=== PATIENT | female | born 1960 | race Caucasian/White ===

== ENCOUNTER → 2024-08-03 | Outpatient (CLI) | payer OTHER, SELFPAY ==
[2024-08-03 08:37] LABS: Basophils % (Auto) 0 % (0-2.5); Eosinophils # (Auto) 0.2 Thou/mm3 (0.0-0.5); Eosinophils % (Auto) 4 % (0-10); Hemoglobin 12.5 g/dL (12.0-16.0); Immature Granulocytes % (Auto) 0 % (0-0); Lymphocytes # (Auto) 2.2 Thou/mm3 (1.0-4.8); Lymphocytes % (Auto) 46 % (10-50); Mean Corpuscular HGB Conc 32.1 g/dl (31.0-37.0); Mean Corpuscular Hemoglobin 26.3 pg (25.0-35.0); Mean Corpuscular Volume 82 fL (80-100); Monocytes # (Auto) 0.5 Thou/mm3 (0.0-0.8); Monocytes % (Auto) 11 % (0-12); Neutrophils # (Auto) 1.9 Thou/mm3 (1.8-7.7); Neutrophils % (Auto) 39 % (37-80); Nucleated Red Blood Cell % 0 /100 WBC (0); Platelet Count 221 Thou/mm3 (140-440); RDW Standard Deviation 40.6 fL (36.4-46.3); Red Blood Count 4.75 Miln/mm3 (4.00-5.20); White Blood Count 4.9 Thou/mm3 (3.6-11.0)
[2024-08-03 08:54] LABS: Alanine Aminotransferase 14 U/L (10-49); Albumin, Serum 4.6 gm/dL (3.4-4.8); Albumin/Globulin Ratio 1.7 (1.2-2.2); Alkaline Phosphatase 84 U/L (46-116); Anion Gap 7 (7-16); Aspartate Amino Transferase 23 U/L (0-34); BUN/Creatinine Ratio 19 Ratio (12-20); Bilirubin,Total 0.5 mg/dL (0.3-1.2); Blood Urea Nitrogen 15 mg/dL (9-23); Calcium 9.8 mg/dL (8.3-10.6); Calcium (Corrected) 9.8 mg/dL (8.5-10.1); Carbon Dioxide 26.7 mMol/L (20.0-31.0); Cardiac Risk Estimate 3.3 RATIO (3.7-5.6); Chloride 104 mMol/L (98-107); Cholesterol 154 mg/dL (132-200); Creatinine (Component) 0.8 mg/dL (0.6-1.3); Globulin 2.7 gm/dL (2.3-3.5); Glucose 100 mg/dL (74-106); HDL Cholesterol 46 mg/dL (40-60); LDL Cholesterol,Calculated 54 mg/dL (0-130); Osmolality,Calculated 276 (275-295); Potassium 4.3 mMol/L (3.4-5.1); Sodium 138 mMol/L (136-145); Total Protein 7.3 gm/dL (5.7-8.2); Triglycerides 271 mg/dL (30-150); eGFR > 60 See Note
[2024-08-03 08:55] LABS: Amphetamine/Methamp Scrn,U Negative (Negative); Barbiturate Screen,Urine Negative (Negative); Benzodiazepines Screen,Urine Negative (Negative); Benzoylecgonine Screen, Ur Negative (Negative); Fentanyl Screen,Urine Negative (Negative); Opiate Screen,Urine Negative (Negative); THC Screen,Urine Negative (Negative)
[2024-08-03 09:32] LABS: Glucose Estimated Average 100 mg/dL (80-131); Hemoglobin A1C 5.1 % Hgb (4.8-6.0)
== END | disposition home or self-care (01) ==
LOC: COPL 07:26
PROVIDERS: PCP Family Medicine; Referring Provider Internal Medicine; Visit Provider Internal Medicine
DX: I10 Essential (primary) hypertension (principal); E78.5 Hyperlipidemia, unspecified; F41.9 Anxiety disorder, unspecified
CPT/HCPCS: 36415; 80053; 80061; 80307; 83036; 85025

== ENCOUNTER → 2024-09-11 | Outpatient (CLI) | payer OTHER, SELFPAY ==
[2024-09-11 08:36] LABS: Basophils % (Auto) 1 % (0-2.5); Eosinophils # (Auto) 0.1 Thou/mm3 (0.0-0.5); Eosinophils % (Auto) 2 % (0-10); Hematocrit 36.3 % (36.0-46.0); Hemoglobin 11.7 g/dL (12.0-16.0); Immature Granulocytes % (Auto) 0 % (0-0); Immature Granulocytes Auto 0.02 Thou/mm3 (0.00-0.00); Lymphocytes # (Auto) 1.9 Thou/mm3 (1.0-4.8); Lymphocytes % (Auto) 33 % (10-50); Mean Corpuscular HGB Conc 32.2 g/dl (31.0-37.0); Mean Corpuscular Volume 81 fL (80-100); Monocytes # (Auto) 0.6 Thou/mm3 (0.0-0.8); Monocytes % (Auto) 10 % (0-12); Neutrophils # (Auto) 3.1 Thou/mm3 (1.8-7.7); Neutrophils % (Auto) 54 % (37-80); Nucleated Red Blood Cell % 0 /100 WBC (0); Platelet Count 240 Thou/mm3 (140-440); RDW Standard Deviation 39.6 fL (36.4-46.3); White Blood Count 5.9 Thou/mm3 (3.6-11.0)
[2024-09-11 09:02] LABS: Alanine Aminotransferase 11 U/L (10-49); Albumin, Serum 4.7 gm/dL (3.4-4.8); Albumin/Globulin Ratio 1.9 (1.2-2.2); Alkaline Phosphatase 76 U/L (46-116); Anion Gap 4 (7-16); Aspartate Amino Transferase 16 U/L (0-34); BUN/Creatinine Ratio 16 Ratio (12-20); Bilirubin,Total 0.5 mg/dL (0.3-1.2); Blood Urea Nitrogen 13 mg/dL (9-23); Calcium 9.7 mg/dL (8.3-10.6); Calcium (Corrected) 9.7 mg/dL (8.5-10.1); Carbon Dioxide 27.9 mMol/L (20.0-31.0); Chloride 103 mMol/L (98-107); Creatinine (Component) 0.8 mg/dL (0.6-1.3); Globulin 2.5 gm/dL (2.3-3.5); Glucose 104 mg/dL (74-106); Osmolality,Calculated 270 (275-295); Potassium 4.2 mMol/L (3.4-5.1); Sodium 135 mMol/L (136-145); Total Protein 7.2 gm/dL (5.7-8.2); eGFR > 60 See Note
[2024-09-11 09:14] LABS: Partial Thromboplastin Time 26.3 Seconds (22.0-36.0); Prothrombin Time 11.4 Seconds (9.0-12.2)
== END | disposition home or self-care (01) ==
PROVIDERS: PCP Family Medicine; Referring Provider Internal Medicine Gastroenterology; Visit Provider Internal Medicine Gastroenterology
DX: R10.9 Unspecified abdominal pain (principal)
CPT/HCPCS: 36415; 80053; 85025; 85610; 85730

== ENCOUNTER 2025-01-18 09:42 | Emergency (ER) | payer OTHER, SELFPAY ==
--- NOTE | 2025-01-18 09:45 | EKG_ITS ---
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
[2025-01-18 09:58] VITALS: BP 167/75; PULSE 65; RESP 16; TEMP 36.8; O2SAT 99; BMI 26.0
--- NOTE | 2025-01-18 10:00 | XR_ITS ---
Examination: PA lateral chest 2 views TECHNIQUE: Upright PA lateral chest 2 views Exam date and time: January 18, 2025 10:24 AM Comparison May 03, 2022 INDICATIONS: Chest pain shortness of breath beginning 3 days ago. FINDINGS: Stable pleural parenchymal scarring left base compared to the 2021 exam Heavy coronary artery calcification CABG Increased AP dimension chest No pneumonia or pulmonary edema Prominent osteopenia with mild kyphosis dorsal spine IMPRESSION: No pneumonia or pulmonary edema
--- NOTE | 2025-01-18 10:00 | EDRME_ITS ---
Rapid Medical Screening Exam [facility] Arrival date/time: 01/18/25 09:42 64-year-old female with history of open heart surgery and stent placement presents to the emergency department with complaints of elevated blood pressure and chest pressure Chief Complaint: Chest Pain Vital signs: Vital Signs Temperature 98.2 F 01/18/25 09:58 Pulse Rate 65 01/18/25 09:58 Respiratory Rate 16 01/18/25 09:58 Blood Pressure 167/75 H 01/18/25 09:58 Pulse Oximetry (%) 99 01/18/25 09:58 Oxygen Delivery Method Room Air 01/18/25 09:58
[2025-01-18 10:28] LABS: Basophils % (Auto) 0 % (0-2.5); Eosinophils # (Auto) 0.1 Thou/mm3 (0.0-0.5); Eosinophils % (Auto) 2 % (0-10); Immature Granulocytes % (Auto) 0 % (0-0); Immature Granulocytes Auto 0.01 Thou/mm3 (0.00-0.00); Lymphocytes # (Auto) 1.3 Thou/mm3 (1.0-4.8); Lymphocytes % (Auto) 24 % (10-50); Mean Corpuscular HGB Conc 32.5 g/dl (31.0-37.0); Mean Corpuscular Hemoglobin 25.6 pg (25.0-35.0); Mean Corpuscular Volume 79 fL (80-100); Monocytes # (Auto) 0.4 Thou/mm3 (0.0-0.8); Monocytes % (Auto) 6 % (0-12); Neutrophils # (Auto) 3.8 Thou/mm3 (1.8-7.7); Neutrophils % (Auto) 68 % (37-80); Nucleated Red Blood Cell % 0 /100 WBC (0); Platelet Count 202 Thou/mm3 (140-440); RDW Standard Deviation 39.4 fL (36.4-46.3); Red Blood Count 5.07 Miln/mm3 (4.00-5.20); White Blood Count 5.6 Thou/mm3 (3.6-11.0)
[2025-01-18 10:45] LABS: Partial Thromboplastin Time 26.8 Seconds (22.0-36.0); Prothrombin Time 11.4 Seconds (9.0-12.2)
[2025-01-18 10:54] LABS: Alanine Aminotransferase 14 U/L (10-49); Albumin, Serum 4.6 gm/dL (3.4-4.8); Albumin/Globulin Ratio 1.4 (1.2-2.2); Alkaline Phosphatase 78 U/L (46-116); Anion Gap 9 (7-16); Aspartate Amino Transferase 28 U/L (0-34); B-Type Natriuretic Peptide 150 pg/mL (0-100); BUN/Creatinine Ratio 14 Ratio (12-20); Bilirubin,Total 0.5 mg/dL (0.3-1.2); Blood Urea Nitrogen 13 mg/dL (9-23); Calcium 9.8 mg/dL (8.3-10.6); Calcium (Corrected) 9.8 mg/dL (8.5-10.1); Carbon Dioxide 26.4 mMol/L (20.0-31.0); Chloride 103 mMol/L (98-107); Creatinine (Component) 0.9 mg/dL (0.6-1.3); Estimated Creatinine Clearance 57.2 mL/min (>60); Globulin 3.3 gm/dL (2.3-3.5); Glucose 131 mg/dL (74-106); Magnesium 1.8 mg/dL (1.6-2.6); Osmolality,Calculated 277 (275-295); Potassium 3.5 mMol/L (3.4-5.1); Sodium 138 mMol/L (136-145); Total Protein 7.9 gm/dL (5.7-8.2); Troponin I < 0.020 ng/mL (0.0-0.045); eGFR > 60 See Note
--- NOTE | 2025-01-18 16:07 | PD.EDADULT ---
ED General RME/HPI General Chief complaint: Chest Pain Stated complaint: BP ELEVATED LAST 2 DAYS; CHEST PAIN THIS AM Time Seen by Provider: 01/18/25 15:29 Arrival date/time: 01/18/25 09:42 CC: Burning sensation in the epigastrium, and elevated blood pressure. The patient is labeling her epigastric pain as chest pain . Onset yesterday. Patient denies fever chills shortness of breath or difficulty breathing no other complaints at this time both the patient and the are frustrated for having waited such a long time in the emergency room waiting room. Currently the patient has no burning sensation is not short of breath but mild headache is beginning to return. RME / HPI RME / HPI narrative: 01/18/25 09:42 64-year-old female with history of open heart surgery and stent placement presents to the emergency department with complaints of elevated blood pressure and chest pressure Related Data Home Medications ?Medication ?Instructions ?Recorded ?Confirmed simvastatin 40 mg tablet (Zocor) 40 mg PO HS #0 tabs 04/27/17 11/13/19 omeprazole magnesium 20 mg 20 mg PO QDAY 05/24/18 11/13/19 tablet,delayed release (Prilosec OTC) nitroglycerin 0.4 mg sublingual 0.4 mg buccal [id number] PRN Chest 12/28/18 11/13/19 tablet Pain warfarin 4 mg tablet 4 mg PO QDAY 12/28/18 11/13/19 buspirone 5 mg tablet 5 mg PO TID 08/01/19 11/13/19 alprazolam 0.5 mg tablet (Xanax) 1 tab PO QDAY PRN Anxiety 11/11/19 11/13/19 aspirin 81 mg tablet,delayed 1 tab PO QDAY 11/11/19 11/13/19 release (Aspir-) losartan 100 mg tablet 100 mg PO QDAY 11/11/19 11/13/19 metoprolol succinate 50 mg capsule 1 tab PO QDAY 11/11/19 11/13/19 sprinkle, ext. release 24 hr cholecalciferol (vitamin D3) 50 2,000 unit PO QDAY 11/13/19 11/13/19 mcg (2,000 unit) tablet (Vitamin D3) ticagrelor 90 mg tablet (Brilinta) 90 mg PO BID 11/13/19 11/13/19 Previous Rx's ?Medication ?Instructions ?Recorded famotidine 20 mg tablet 20 mg PO QDAY #60 tabs 01/18/25 Allergies Allergy/AdvReac Type Severity Reaction Status Date / Time No Known Allergies Allergy Verified 01/18/25 09:45 Review of Systems Review of Systems Narrative Review of Systems: GEN: No fever, no chills, no weight loss EYES: No discharge, no visual changes, no pain HEENT: No ear pain, no congestion, no sore throat PULM: No shortness of breath, no cough, no congestion CV: No chest pain, no dyspnea on exertion, no palpitations GI: No nausea, no vomiting, no diarrhea, no pain, no constipation : No frequency, no urgency, no dysuria MUSC/SKEL: No joint pain, no back pain SKIN: No rash PSYCH: No hallucinations, no depression HEME/LYMPH: No easy bleeding or bruising tendencies NEURO: No weakness, + headache Past Medical History Past Medical History CARDIAC: Positive Cardiac Disorders, Angina, Hypercholesterolemia and Hypertension; Negative Congestive Heart Failure RESPIRATORY: Negative Chronic Obstructive Pulmonary Disease (COPD) GENITOURINARY: Negative Renal Disease ENDOCRINE: Negative Diabetes Mellitus Type 1 or Diabetes Mellitus Type 2 PSYCHO/SOCIAL: Positive Anxiety OTHER HISTORY: Positive Chicken Pox and Measles; Negative Autoimmune Disease Family History FAMILY HISTORY: Positive Family Cardiac Disorders, Family Cancer and Family Surgery; Negative Family Psychiatric Problems, Family Respiratory Disorders, Family Gastrointestinal Problems or Family Anesthesia Reaction Surgical History SURGICAL: Positive Coronary Artery Bypass Graft, Coronary Stent, Tubal Ligation and Section Social History SMOKING STATUS: Never smoker SECOND HAND EXPOSURE: No ED Exam Narrative Physical exam: [General: Stooped, partially deconditioned but not in any acute distress Head normocephalic HEENT: Eyes pupils are PERRLA EOMs are intact mouth pink moist membranes uvula is midline swallow symmetrical phonation is normal. Within acceptable limits Neck is supple nontender Chest equal chest rise nontender to palpation Respiratory: Clear to auscultation no wheezes crackles or rubs CV: Rate rhythm is regular no murmurs rubs or clicks Abdomen mild epigastric tenderness with palpation for deep flexion of guarding no rebound tenderness. No pain in the lower quadrants. Back: No CVA tenderness no spinous process tenderness from cervical spine thoracic and lumbar spine Skin: Intact no petechiae rash induration ulceration or crepitus Extremities: Moving all extremity against resistance cap refill less than 2 seconds neurosensory intact Neuro: Awake alert oriented x3 Glascow coma 15 no focal deficits] Course Course Course Narrative: Patient has no acute findings other than a mild elevation of pressure recheck at the time of the discharge she was at 178/80. Patient is complaining of a mild headache we will give her Tylenol and discharge her home as there is no acute or emergent finding. Quality Measures none Orders Category Date Time Status Associate Drafter NOW Care 01/18/25 10:00 Active EKG (ED ONLY) *Do not use* NOW Care 01/18/25 09:46 Completed EKG (ED Only) Stat Exams 01/18/25 09:45 Draft XR chest 2V Stat Exams 01/18/25 10:00 Completed B-Type Natriuretic Peptide Stat Lab 01/18/25 10:19 Completed CBC Stat Lab 01/18/25 10:19 Completed Comprehensive Metabolic Panel Stat Lab 01/18/25 10:19 Completed Magnesium Stat Lab 01/18/25 10:19 Completed Partial Thromboplastin Time Stat Lab 01/18/25 10:19 Completed Prothrombin Time with INR Stat Lab 01/18/25 10:19 Completed Troponin I Stat Lab 01/18/25 10:19 Completed Acetaminophen Tab [Tylenol Tab] Med 01/18/25 16:06 Once 650 mg PO X1 ONE Vital Signs Vital signs: Vital Signs Temperature 98.2 F 01/18/25 09:58 Pulse Rate 65 01/18/25 09:58 Respiratory Rate 16 01/18/25 09:58 Blood Pressure 167/75 H 01/18/25 09:58 Pulse Oximetry (%) 99 01/18/25 09:58 Oxygen Delivery Method Room Air 01/18/25 09:58 Discharge Plan Plan Patient Disposition: HOME (Self Care) Patient condition on transfer: Stable Prescriptions/Referrals Prescriptions/Med Rec: New famotidine 20 mg tablet 20 mg PO QDAY Qty: 60 0RF No Action simvastatin [Zocor] 40 MG tablet 40 mg PO HS Qty: 0 buspirone 5 mg Tablet 5 mg PO TID aspirin [Aspir-81] 81 mg Tablet,Delayed Release (Dr/Ec) 1 tab PO QDAY alprazolam [Xanax] 0.5 mg Tablet 1 tab PO QDAY PRN (Reason: Anxiety) metoprolol succinate 50 mg Capsule,Sprinkle,Er 24hr 1 tab PO QDAY losartan 100 mg Tablet 100 mg PO QDAY Prilosec OTC 20 mg Tablet,Delayed Release (Dr/Ec) 20 mg PO QDAY warfarin 4 mg Tablet 4 mg PO QDAY nitroglycerin 0.4 mg Tablet, Sublingual 0.4 mg BUCCAL [id number] PRN (Reason: Chest Pain) cholecalciferol (vitamin D3) [Vitamin D3] 2,000 unit Tablet 2,000 unit PO QDAY Brilinta 90 mg Tablet 90 mg PO BID Referrals: Shahbaz Domingo MD [Primary Care Provider] - In 1 week Problem List Clinical Impression: Epigastric pain, Hypertension Patient/Caregiver Discharge Instructions Education Materials: ED High Blood Pressure ... Additional Instructions: Take the medications as prescribed avoid greasy spicy fatty foods eat no food for 2 hours before going to bed if is worsening of symptoms in spite of the medication and this intervention return the emergency room medially for further evaluation. Print Language: Latvian Stand Alone Forms: Ana M Award Info., Patient Portal Info Letter, Work/School Release PA/SENIOR ORACLE APPLICATIONS DEVELOPER Supervising Physician PA/SENIOR ORACLE APPLICATIONS DEVELOPER Supervising Physician: Thom Esparza ENAmilcar MDM Patient Acuity High Acuity (complete MDM) Clinical Information Provided by: patient Medical Records reviewed [facility] Labs/Rad/Tests considered, not ordered Describe: CBC shows no acute leukocytosis anemia thrombocytopenia CMP showed no acute electrolyte imbalances renal impairment transaminitis or T. bili elevation Troponin is negative BNP is 150 Chest x-ray as interpreted by me read by radiology as negative for any acute finding requires emergent or immediate intervention. EKG EKG Interpretation(s): EKG performed at 1011 shows a ventricular rate of 5 9 OR interval 180 QRS of 105 QTc of 412 the sinus bradycardia. Medication Administration(s) Medication Administration History Acetaminophen (Acetaminophen 325 Mg Tablet) 650 mg PO X1 ONE Stop: 01/18/25 16:07
[2025-01-18] MEDS: ACETAMINOPHEN 325 MG TABLET 650 MG PO (16:36)
== END 2025-01-18 16:39 | disposition home or self-care (01) ==
PROVIDERS: Nurse Practitioner Primary Care; Emergency Provider Family Medicine; PCP Family Medicine
DX: R10.13 Epigastric pain (principal); I10 Essential (primary) hypertension; R51.9 Headache, unspecified
CPT/HCPCS: 36415; 71046; 80053; 83735; 83880; 84484; 85025; 85610; 85730; 93005; 99283; A9270

== ENCOUNTER → 2025-01-21 | Outpatient (CLI) | payer OTHER, SELFPAY ==
[2025-01-21 08:35] LABS: Basophils % (Auto) 0 % (0-2.5); Eosinophils # (Auto) 0.1 Thou/mm3 (0.0-0.5); Eosinophils % (Auto) 1 % (0-10); Hematocrit 40.3 % (36.0-46.0); Hemoglobin 12.9 g/dL (12.0-16.0); Immature Granulocytes % (Auto) 0 % (0-0); Immature Granulocytes Auto 0.01 Thou/mm3 (0.00-0.00); Lymphocytes # (Auto) 1.8 Thou/mm3 (1.0-4.8); Lymphocytes % (Auto) 28 % (10-50); Mean Corpuscular Hemoglobin 25.9 pg (25.0-35.0); Mean Corpuscular Volume 81 fL (80-100); Monocytes # (Auto) 0.6 Thou/mm3 (0.0-0.8); Monocytes % (Auto) 10 % (0-12); Neutrophils % (Auto) 61 % (37-80); Nucleated Red Blood Cell % 0 /100 WBC (0); Platelet Count 216 Thou/mm3 (140-440); RDW Standard Deviation 40.6 fL (36.4-46.3); Red Blood Count 4.98 Miln/mm3 (4.00-5.20); White Blood Count 6.5 Thou/mm3 (3.6-11.0)
[2025-01-21 08:52] LABS: B-Type Natriuretic Peptide 82 pg/mL (0-100)
[2025-01-21 10:53] LABS: Glucose Estimated Average 103 mg/dL (80-131); Hemoglobin A1C 5.2 % Hgb (4.8-6.0)
[2025-01-21 11:06] LABS: Alanine Aminotransferase 12 U/L (10-49); Albumin, Serum 4.8 gm/dL (3.4-4.8); Albumin/Globulin Ratio 1.5 (1.2-2.2); Alkaline Phosphatase 75 U/L (46-116); Anion Gap 11 (7-16); Aspartate Amino Transferase 25 U/L (0-34); BUN/Creatinine Ratio 16 Ratio (12-20); Bilirubin,Total 0.9 mg/dL (0.3-1.2); Blood Urea Nitrogen 14 mg/dL (9-23); Calcium 9.8 mg/dL (8.3-10.6); Calcium (Corrected) 9.8 mg/dL (8.5-10.1); Carbon Dioxide 26.5 mMol/L (20.0-31.0); Chloride 99 mMol/L (98-107); Cholesterol 155 mg/dL (132-200); Creatinine (Component) 0.9 mg/dL (0.6-1.3); Globulin 3.1 gm/dL (2.3-3.5); Glucose 106 mg/dL (74-106); HDL Cholesterol 52 mg/dL (40-60); LDL Cholesterol,Calculated 69 mg/dL (0-130); Osmolality,Calculated 272 (275-295); Potassium 3.5 mMol/L (3.4-5.1); Sodium 136 mMol/L (136-145); Total Protein 7.9 gm/dL (5.7-8.2); Triglycerides 168 mg/dL (30-150); eGFR > 60 See Note
== END | disposition home or self-care (01) ==
LOC: COPL 07:33
PROVIDERS: PCP Internal Medicine; Referring Provider Internal Medicine; Visit Provider Internal Medicine
DX: K21.9 Gastro-esophageal reflux disease without esophagitis (principal); I10 Essential (primary) hypertension; I25.10 Atherosclerotic heart disease of native coronary artery without angina pectoris
CPT/HCPCS: 36415; 80053; 80061; 83036; 83880; 85025

== ENCOUNTER → 2025-05-13 | Outpatient (CLI) | payer OTHER, SELFPAY ==
[2025-05-13 09:52] LABS: Basophils # (Auto) 0.0 Thou/mm3 (0.0-0.2); Basophils % (Auto) 0 % (0-2.5); Eosinophils # (Auto) 0.2 Thou/mm3 (0.0-0.5); Eosinophils % (Auto) 3 % (0-10); Hematocrit 37.3 % (36.0-46.0); Hemoglobin 12.2 g/dL (12.0-16.0); Immature Granulocytes Auto 0.01 Thou/mm3 (0.00-0.00); Lymphocytes # (Auto) 2.0 Thou/mm3 (1.0-4.8); Lymphocytes % (Auto) 38 % (10-50); Mean Corpuscular HGB Conc 32.7 g/dl (31.0-37.0); Mean Corpuscular Hemoglobin 26.8 pg (25.0-35.0); Mean Corpuscular Volume 82 fL (80-100); Monocytes # (Auto) 0.5 Thou/mm3 (0.0-0.8); Monocytes % (Auto) 10 % (0-12); Neutrophils # (Auto) 2.5 Thou/mm3 (1.8-7.7); Neutrophils % (Auto) 48 % (37-80); Nucleated Red Blood Cell # 0.00 Thou/mm3 (0.00-0.00); Nucleated Red Blood Cell % 0 /100 WBC (0); Platelet Count 238 Thou/mm3 (140-440); RDW Standard Deviation 39.8 fL (36.4-46.3); Red Blood Count 4.55 Miln/mm3 (4.00-5.20); White Blood Count 5.3 Thou/mm3 (3.6-11.0)
[2025-05-13 10:02] LABS: Alanine Aminotransferase 10 U/L (10-49); Albumin, Serum 4.9 gm/dL (3.4-4.8); Albumin/Globulin Ratio 1.7 (1.2-2.2); Alkaline Phosphatase 67 U/L (46-116); Anion Gap 12 (7-16); Aspartate Amino Transferase 26 U/L (0-34); BUN/Creatinine Ratio 10 Ratio (12-20); Bilirubin,Total 0.5 mg/dL (0.3-1.2); Blood Urea Nitrogen 9 mg/dL (9-23); Calcium 10.1 mg/dL (8.3-10.6); Calcium (Corrected) 10.1 mg/dL (8.5-10.1); Carbon Dioxide 25.9 mMol/L (20.0-31.0); Chloride 100 mMol/L (98-107); Creatinine (Component) 0.9 mg/dL (0.6-1.3); Globulin 2.9 gm/dL (2.3-3.5); Glucose 100 mg/dL (74-106); Osmolality,Calculated 274 (275-295); Potassium 3.7 mMol/L (3.4-5.1); Sodium 138 mMol/L (136-145); Total Protein 7.8 gm/dL (5.7-8.2); eGFR > 60 See Note
== END | disposition home or self-care (01) ==
LOC: COPL 08:47
PROVIDERS: PCP Internal Medicine; Referring Provider Internal Medicine; Visit Provider Internal Medicine
DX: I10 Essential (primary) hypertension (principal)
CPT/HCPCS: 36415; 80053; 85025

== ENCOUNTER 2025-06-05 12:09 | Emergency (ER) | payer OTHER, SELFPAY ==
[2025-06-05 12:10] VITALS: BMI 25.7
--- NOTE | 2025-06-05 12:12 | EKG_ITS ---
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1960 Requested By: ED Temporary Provider Order Number: [id number] Reading MD: ED Temporary Provider Measurements Intervals [place] Rate: 58 P: 78 AK: 183 QRS: 39 QRSD: 107 T: 43 QT: 409 QTc: 405 Interpretive Statements SINUS BRADYCARDIA LOW QRS VOLTAGE IN PRECORDIAL LEADS [QRS DEFLECTION < 1.0 mV IN CHEST LEADS] INCOMPLETE RIGHT BUNDLE BRANCH BLOCK [90+ ms QRS DURATION, TERMINAL R IN V1/V2, 40+ ms S IN I/aVL/V4/V5/V6] MODERATE ST DEPRESSION [0.05+ mV ST DEPRESSION] Compared to ECG 01/18/2025 10:11:56 Low QRS voltage now present Incomplete right bundle-branch block now present ST (T wave) deviation still present /store/S0/[id number]/[id number]
--- NOTE | 2025-06-05 12:31 | PD.EDARRY ---
ED Arrhythmia Palp. RME/HPI General Chief Complaint: Arrhythmia/Palpitations Stated Complaint: PALPITATIONS SINCE 0600 TODAY Arrival date/time: 06/05/25 12:09 Mode of arrival: ambulatory Limitations: no limitations RME / HPI RME / HPI narrative: Ms. Higgins is a 64-year-old female with past medical history of CAD s/p CABG, hypertension, dyslipidemia, GERD and anxiety disorder who presented to [facility] emergency department today with a chief complaint of palpitations. Patient complains of palpitations and also complains of some chest pressure at random times not associated with activity, denies any shortness of breath or any other complaints. Patient complains that she has history of significant anxiety and complains of feeling anxious at times when she is in the ER or at doctors office for visit. Related Data Home Medications ?Medication ?Instructions ?Recorded ?Confirmed simvastatin 40 mg tablet (Zocor) 40 mg PO HS #0 tabs 04/27/17 11/13/19 omeprazole magnesium 20 mg 20 mg PO QDAY 05/24/18 11/13/19 tablet,delayed release (Prilosec OTC) nitroglycerin 0.4 mg sublingual 0.4 mg buccal [id number] PRN Chest 12/28/18 11/13/19 tablet Pain warfarin 4 mg tablet 4 mg PO QDAY 12/28/18 11/13/19 buspirone 5 mg tablet 5 mg PO TID 08/01/19 11/13/19 alprazolam 0.5 mg tablet (Xanax) 1 tab PO QDAY PRN Anxiety 11/11/19 11/13/19 aspirin 81 mg tablet,delayed 1 tab PO QDAY 11/11/19 11/13/19 release (Aspir-) losartan 100 mg tablet 100 mg PO QDAY 11/11/19 11/13/19 metoprolol succinate 50 mg capsule 1 tab PO QDAY 11/11/19 11/13/19 sprinkle, ext. release 24 hr cholecalciferol (vitamin D3) 50 2,000 unit PO QDAY 11/13/19 11/13/19 mcg (2,000 unit) tablet (Vitamin D3) ticagrelor 90 mg tablet (Brilinta) 90 mg PO BID 11/13/19 11/13/19 Previous Rx's ?Medication ?Instructions ?Recorded famotidine 20 mg tablet 20 mg PO QDAY #60 tabs 01/18/25 Allergies Allergy/AdvReac Type Severity Reaction Status Date / Time No Known Allergies Allergy Verified 06/05/25 12:11 Review of Systems Review of Systems Systems Reviewed: All systems reviewed, normal except as documented Past Medical History Past Medical History CARDIAC: Positive Cardiac Disorders, Angina, Hypercholesterolemia and Hypertension; Negative Congestive Heart Failure RESPIRATORY: Negative Chronic Obstructive Pulmonary Disease (COPD) GENITOURINARY: Negative Renal Disease ENDOCRINE: Negative Diabetes Mellitus Type 1 or Diabetes Mellitus Type 2 PSYCHO/SOCIAL: Positive Anxiety OTHER HISTORY: Positive Chicken Pox and Measles; Negative Autoimmune Disease Family History FAMILY HISTORY: Positive Family Cardiac Disorders, Family Cancer and Family Surgery; Negative Family Psychiatric Problems, Family Respiratory Disorders, Family Gastrointestinal Problems or Family Anesthesia Reaction Surgical History SURGICAL: Positive Coronary Artery Bypass Graft, Coronary Stent, Tubal Ligation and Section Social History SMOKING STATUS: Never smoker SECOND HAND EXPOSURE: No ED Exam Narrative Physical exam: Physical Exam General: Awake and in no acute distress. Conversational and non-toxic appearing. HEENT: Normocephalic, atraumatic, mucous membranes moist. Heart: Regular rate and rhythm, no murmurs. Lungs: Clear to auscultation with no wheezing or crackles. Abdomen: Soft, nondistended, nontender, positive bowel sounds. ?No guarding or rebound tenderness. Neurologic: Alert and oriented x3, no gross neurological deficit, and patient able to move all 4 extremities. Extremities: 1+ BLE pitting Skin: No rash or ecchymoses. General Limitations: Present no limitations Course Course Course Narrative: 15:00 Hospitalist team consulted for possible admission for chest pain, ACS rule out workup Quality Measures none Orders Category Date Time Status EKG (ED ONLY) *Do not use* NOW Care 06/05/25 12:12 Active EKG (ED Only) Stat Exams 06/05/25 12:12 Ordered Arrhythmia/Palpitations MDM Narrative MDM Narrative:: EKG obtained in ED showed no acute ST-T changes, some T wave inversions noted on lead V1 V2, reviewed with previous EKGs similar findings noted on old EKGs as well. Workup obtained in ED shows hemoglobin 11.8, troponin unremarkable, BNP mildly elevated at 133. Of note patient follows Dr. Montoya biology tutor in [place], PCP Grazyna Galarza patient had a stress test done about 7 months ago which was normal. #Palpitations #Chest Pain, Unknown Cause #H/O CABG EKG obtained in ED showed no acute ST-T changes, some T wave inversions noted on lead V1 V2, reviewed with previous EKGs similar findings noted on old EKGs as well. ED troponin unremarkable, BNP mildly elevated at 133. Was discussed with hospitalist for possible observation admission however patient asymptomatic, and when she discussed with hospitalist team, she felt comfortable w/ dc to home and f/u with pcp and biology tutor. -Stable for discharge home -Follow up with biology tutor outpatient -Follow up with PCP for anxiety medication optimization Case discussed with Attending Physician Dr. Marissa Garza MD Internal Medicine PGY-2 Disclaimer: This note was dictated by speech recognition. Minor errors in chainstitch zipper setter may be present due to voice recognition software. Patient data External records reviewed:: [facility] previous records Clinical information provided by:: patient and spouse Social determinants that could affect healthcare access:: none Patient has the following chronic illnesses:: CAD s/p CABG, hypertension, dyslipidemia, GERD and anxiety disorder How is presenting disease/condition affected by chronic disease/condition?: exacerbated by Evaluation data The following diagnostics were reviewed and interpreted by me:: lab results, radiology exam(s) and EKG tracing(s) Lab and/or radiology exams considered but not ordered:: N/A Interpretation Summary: EKG obtained in ED showed no acute ST-T changes, some T wave inversions noted on lead V1 V2, reviewed with previous EKGs similar findings noted on old EKGs as well. ED troponin unremarkable, nl on two assessments. BNP mildly elevated at 133, patient on RA, no LE edema. Medications / Prescriptions Medications or Prescriptions considered but not ordered:: None Medication administrations:: None Consultations Consultation(s) initiated? (list below): Yes Consultation #1 (Physician, Specialty, Details): Dr Morales, [place], for possible hospital observation admission. Will discharge for O/P follow up Diagnosis Differential diagnosis arrhythmia/palpitations: palpitations and anxiety Most likely diagnosis given after review of the tests above:: Anxiety, low suspicion of Cardiac Chest Pain Admission Indicated Admission indicated?: not indicated Explain why admission is indicated or not indicated:: Not indicated, eval by hospitalist team, discharge to o/p cardiology follow up. Admission Request Was there a request for admission?: Yes Disposition Plan Disposition Plan: Discharge Discharge Attestation Discharge Attestation: The patient and all family members were given an opportunity to ask questions and understood the discharge instructions. Discharge instructions specifically effects, indications for sooner follow up or return to the emergency department, and the expected course of current diagnosis. Patient condition: Stable Discharge Plan Plan Patient Disposition: HOME (Self Care) Patient condition on transfer: Stable Health Concerns: - Follow up with [facility], your biology tutor Dr Montoya. - Follow up with PCP and adjust your anxiety medications. - Return to ED if symptoms worsen Prescriptions/Referrals Prescriptions/Med Rec: No Action simvastatin [Zocor] 40 MG tablet 40 mg PO HS Qty: 0 buspirone 5 mg Tablet 5 mg PO TID aspirin [Aspir-81] 81 mg Tablet,Delayed Release (Dr/Ec) 1 tab PO QDAY alprazolam [Xanax] 0.5 mg Tablet 1 tab PO QDAY PRN (Reason: Anxiety) metoprolol succinate 50 mg Capsule,Sprinkle,Er 24hr 1 tab PO QDAY losartan 100 mg Tablet 100 mg PO QDAY Prilosec OTC 20 mg Tablet,Delayed Release (Dr/Ec) 20 mg PO QDAY warfarin 4 mg Tablet 4 mg PO QDAY nitroglycerin 0.4 mg Tablet, Sublingual 0.4 mg BUCCAL [id number] PRN (Reason: Chest Pain) cholecalciferol (vitamin D3) [Vitamin D3] 2,000 unit Tablet 2,000 unit PO QDAY Brilinta 90 mg Tablet 90 mg PO BID famotidine 20 mg tablet 20 mg PO QDAY Qty: 60 0RF Referrals: Prosper Galarza [Primary Care Provider] - In 1 week Problem List Clinical Impression: Anxiety Patient/Caregiver Discharge Instructions Discharge Activity: activity as tolerated Education Materials: Anxiety Disorders Tx Therapy, ED Chest Pain, Uncertain Cause Print Language: Sierra Leonean Stand Alone Forms: Ana M Award Info., Patient Portal Info Letter
[2025-06-05 12:39] VITALS: BP 153/84; PULSE 63; RESP 18; TEMP 36.9; O2SAT 100
--- NOTE | 2025-06-05 12:50 | XR_ITS ---
Examination: PA chest single view Technique: Upright PA chest single view Date and time: June 05, 2025, 1303 hrs., Comparison January 18, 2025 Indications: Cardiac palpitations today. Findings: Mild enlargement cardiac contour. Median sternotomy wires. Mild vascular congestion. No lobar pneumonia or pulmonary edema. Impression: Mild vascular congestion.
[2025-06-05 13:14] LABS: Lactate (Lactic Acid) 1.5 mMol/L (0.4-2.0)
[2025-06-05 13:21] LABS: Basophils # (Auto) 0.0 Thou/mm3 (0.0-0.2); Basophils % (Auto) 1 % (0-2.5); Eosinophils # (Auto) 0.1 Thou/mm3 (0.0-0.5); Eosinophils % (Auto) 2 % (0-10); Hematocrit 36.8 % (36.0-46.0); Hemoglobin 11.8 g/dL (12.0-16.0); Immature Granulocytes Auto 0.01 Thou/mm3 (0.00-0.00); Lymphocytes # (Auto) 2.0 Thou/mm3 (1.0-4.8); Lymphocytes % (Auto) 33 % (10-50); Mean Corpuscular HGB Conc 32.1 g/dl (31.0-37.0); Mean Corpuscular Hemoglobin 26.3 pg (25.0-35.0); Mean Corpuscular Volume 82 fL (80-100); Monocytes # (Auto) 0.5 Thou/mm3 (0.0-0.8); Monocytes % (Auto) 9 % (0-12); Neutrophils # (Auto) 3.2 Thou/mm3 (1.8-7.7); Neutrophils % (Auto) 55 % (37-80); Nucleated Red Blood Cell # 0.00 Thou/mm3 (0.00-0.00); Nucleated Red Blood Cell % 0 /100 WBC (0); Platelet Count 271 Thou/mm3 (140-440); RDW Standard Deviation 39.2 fL (36.4-46.3); Red Blood Count 4.48 Miln/mm3 (4.00-5.20); White Blood Count 5.9 Thou/mm3 (3.6-11.0)
[2025-06-05 13:47] LABS: Glucose Estimated Average 105 mg/dL (80-131); Hemoglobin A1C 5.3 % Hgb (4.8-6.0)
[2025-06-05 14:00] LABS: B-Type Natriuretic Peptide 133 pg/mL (0-100)
[2025-06-05 14:12] LABS: Alanine Aminotransferase 9 U/L (10-49); Albumin, Serum 4.7 gm/dL (3.4-4.8); Albumin/Globulin Ratio 1.7 (1.2-2.2); Alkaline Phosphatase 63 U/L (46-116); Anion Gap 10 (7-16); Aspartate Amino Transferase 20 U/L (0-34); BUN/Creatinine Ratio 11 Ratio (12-20); Bilirubin,Total 0.5 mg/dL (0.3-1.2); Blood Urea Nitrogen 10 mg/dL (9-23); Calcium 10.2 mg/dL (8.3-10.6); Calcium (Corrected) 10.2 mg/dL (8.5-10.1); Carbon Dioxide 28.4 mMol/L (20.0-31.0); Cardiac Risk Estimate 2.9 RATIO (3.7-5.6); Chloride 103 mMol/L (98-107); Cholesterol 134 mg/dL (132-200); Creatinine (Component) 0.9 mg/dL (0.6-1.3); Estimated Creatinine Clearance 56.8 mL/min (>60); Free T4 (Free Thyroxine) 1.50 ng/dL (0.89-1.76); Globulin 2.7 gm/dL (2.3-3.5); Glucose 91 mg/dL (74-106); HDL Cholesterol 47 mg/dL (40-60); LDL Cholesterol,Calculated 57 mg/dL (0-130); Magnesium 1.7 mg/dL (1.6-2.6); Osmolality,Calculated 280 (275-295); Phosphorous 3.6 mg/dL (2.4-5.1); Potassium 3.5 mMol/L (3.4-5.1); Sodium 141 mMol/L (136-145); Thyroid Stimulating Hormone 0.98 uIU/mL (0.55-4.78); Total Protein 7.4 gm/dL (5.7-8.2); Triglycerides 150 mg/dL (30-150); Troponin I < 0.020 ng/mL (0.0-0.045); eGFR > 60 See Note
--- NOTE | 2025-06-05 16:24 | PD.RESCONSUL ---
HPI Data of Consult Consult date: 06/05/25 Primary Care Provider: Prosper Galarza Consult Narrative Reason for consult: Palpitations History of present illness: 64-year-old female with past medical history of coronary artery disease status post CABG in 2011, history of possible arrhythmia previously on warfarin, anxiety presenting to the ED on 06/05 with episode of palpitations. Patient states that she woke up this morning with palpitations which were ongoing and would come and go for a few seconds at a time. Patient became anxious when these episodes started and would not go away at all throughout the morning. Patient has experienced palpitations in the past and follows up with Dr. Eldon Montoya in [place]. Patient had a appointment a couple months ago and apparently 7 months ago had a stress test which was normal. Patient is unsure exactly why she was on warfarin but she states she currently takes metoprolol succinate and Plavix but no aspirin or any other antiplatelet. Patient was previously on Brilinta but has also stopped taking that medication, she is unsure exactly when or why. Her last heart catheterization was sometime before and she states that she did not require any stent placement at that time. Patient denies having any other concerning symptoms and denies having any chest pain during these episodes. Medical history: As stated above Surgical history: CABG Allergies: NKDA Home medications: As listed Family history: Noncontributory Social history: Patient lives in [place] with , denies any alcohol, tobacco or illicit drug use ROS: All 12 systems assessed and the patient denies unless otherwise stated in HPI In the ED, patient's vitals were stable, laboratory findings showed mild normocytic anemia, electrolyte panel was largely unremarkable, other than mildly elevated corrected calcium of 10.2. Troponin was negative on 2 checks and BNP was mildly elevated at 133. EKG studies were showing sinus bradycardia with very minimal ST depression noted on leads I and II and incomplete right bundle branch block which were seen in previous EKG studies. Chest x-ray showed mild vascular congestion with mild enlargement of the cardiac contour but no active disease process. cc:: cc: Exam Vital Signs Temp Pulse Resp BP Pulse Ox O2 Del Method 98.4 F 63 18 153/84 H 100 Room Air 06/05/25 12:39 06/05/25 12:39 06/05/25 12:39 06/05/25 12:39 06/05/25 12:39 06/05/25 12:39 Narrative Exam Physical Exam: GENERAL: Awake, answering questions appropriately, appears stated age HEENT: NC/AT. Moist mucosa. PERRLA/EOMI. CARDIO: Heart RRR, no obvious murmurs, no JVD. PULM: No coughing or visible SOB. Lungs CTA B/L. GI: Abdomen soft, NT/ND, +BS. SKIN/MSK/EXT: No wounds/discoloration/rashes/edema/amputations noted. +Pedal pulses present B/L. NEURO: Oriented x3, Moves extremities x4, no focal neurologic deficits noted. Results Labs 06/05/25 12:58 06/05/25 12:58 Labs: Short CBC 06/05/25 Range/Units 12:58 WBC 5.9 (3.6-11.0) Thou/mm3 Hgb 11.8 L (12.0-16.0) g/dL Hct 36.8 (36.0-46.0) % Plt Count 271 D (140-440) Thou/mm3 BMP 06/05/25 12:58 Sodium 141 Potassium 3.5 Chloride 103 Carbon Dioxide 28.4 BUN 10 Creatinine 0.9 Glucose 91 Calcium 10.2 Cardiac Enzymes 06/05/25 Range/Units 12:58 Troponin I < 0.020 (0.0-0.045) ng/mL Liver Function 06/05/25 Range/Units 12:58 Total Bilirubin 0.5 (0.3-1.2) mg/dL AST 20 (0-34) U/L ALT 9 L (10-49) U/L Alkaline Phosphatase 63 (46-116) U/L Albumin 4.7 (3.4-4.8) gm/dL Quality Measures Quality Measures none Advance care planning discussed with:: patient Medications Home Medications and Allergies Home Medications ?Medication ?Instructions ?Recorded ?Confirmed ?Type simvastatin 40 mg tablet (Zocor) 40 mg PO HS #0 tabs 04/27/17 11/13/19 History omeprazole magnesium 20 mg 20 mg PO QDAY 05/24/18 11/13/19 History tablet,delayed release (Prilosec OTC) nitroglycerin 0.4 mg sublingual 0.4 mg buccal [id number] PRN Chest 12/28/18 11/13/19 History tablet Pain warfarin 4 mg tablet 4 mg PO QDAY 12/28/18 11/13/19 History buspirone 5 mg tablet 5 mg PO TID 08/01/19 11/13/19 History alprazolam 0.5 mg tablet (Xanax) 1 tab PO QDAY PRN Anxiety 11/11/19 11/13/19 History aspirin 81 mg tablet,delayed 1 tab PO QDAY 11/11/19 11/13/19 History release (Aspir-) losartan 100 mg tablet 100 mg PO QDAY 11/11/19 11/13/19 History metoprolol succinate 50 mg capsule 1 tab PO QDAY 11/11/19 11/13/19 History sprinkle, ext. release 24 hr cholecalciferol (vitamin D3) 50 2,000 unit PO QDAY 11/13/19 11/13/19 History mcg (2,000 unit) tablet (Vitamin D3) ticagrelor 90 mg tablet (Brilinta) 90 mg PO BID 11/13/19 11/13/19 History Allergies Allergy/AdvReac Type Severity Reaction Status Date / Time No Known Allergies Allergy Verified 06/05/25 12:11 Assessment & Plan Assessment 64-year-old female with past medical history of coronary artery disease status post CABG in 2011, history of possible arrhythmia previously on warfarin, anxiety presenting to the ED on 06/05 with episode of palpitations, consulted by ED provider for possible need for admission as the patient is high risk secondary to her history of CABG. On assessment of patient, patient denied ever having chest pain during episodes of palpitations. Patient is unsure exactly why she is on warfarin most likely she is experiencing flutter but there is no documented EKG with the following. Patient follows up with Dr. Montoya, cardiology in [place] and was last seen several months ago. #CAD, status post CABG #Palpitations On examination, patient does not have any chest pain with normal rate rhythm with S1-S2 auscultated Vitals were stable during examination EKG does not show any concerning findings, similar to previous EKGs Troponin has been negative x 2 and BNP is mildly elevated in the 130s Plan: Recommend the patient obtain a Holter monitor and follow-up with her director wholesale Patient may continue her home medications of Plavix and metoprolol succinate Patient seen and examined with attending Dr. Andrew Barajas, DO PGY-2 Internal Medicine - [facility] Attending Provider Attestation/Addendum Met with patient and . Patient is asymptomatic does not have any palpitations or chest pain at this point. Apparently she woke up with some chest fluttering sensation which initially lasted for seconds and then throughout next couple of hours she had another episodes which resolved as well. She did not take any nitroglycerin never had any chest pain/pressure/burning sensation/discomfort any radiation of or diaphoresis. She had negative stress test done apparently 6-7 months ago her director wholesale Dr. Richardson Montoya in [place]. She takes only clopidogrel she mentions that her doctors took her off from Coumadin, aspirin as well as Brilinta. She takes her metoprolol evening time. She does have anxiety and takes BuSpar and as needed Xanax, her EKG was done in the ED looks the same as she had in December of this year 2024. Troponin I was negative x 1, recommended to obtain second set and then if negative and patient stable probably can be released from the emergency room with close follow-up with cardiology and PCP. Also recommend to event/Holter monitor for her but we do not carry this unfortunately in the emergency room. Patient and agreeable with the plan of being released there were informed to come back to the emergency room if symptoms/signs recur
[2025-06-05 17:24] LABS: Troponin I < 0.020 ng/mL (0.0-0.045)
[2025-06-05 17:42] VITALS: BP 155/79; PULSE 54; RESP 16; TEMP 36.6; O2SAT 99
== END 2025-06-05 17:57 | disposition home or self-care (01) ==
PROVIDERS: Emergency Provider Emergency Medicine; PCP Internal Medicine
DX: F41.9 Anxiety disorder, unspecified (principal); I25.10 Atherosclerotic heart disease of native coronary artery without angina pectoris; Z95.1 Presence of aortocoronary bypass graft; I10 Essential (primary) hypertension; E78.5 Hyperlipidemia, unspecified; K21.9 Gastro-esophageal reflux disease without esophagitis; Z79.02 Long term (current) use of antithrombotics/antiplatelets; I45.10 Unspecified right bundle-branch block; R00.1 Bradycardia, unspecified
CPT/HCPCS: 36415; 71045; 80053; 80061; 83036; 83605; 83735; 83880; 84100; 84439; 84443; 84484; 85025; 93005; 99284

== ENCOUNTER → 2025-08-13 | Outpatient (CLI) | payer OTHER, SELFPAY ==
[2025-08-13 13:05] LABS: Basophils # (Auto) 0.0 Thou/mm3 (0.0-0.2); Basophils % (Auto) 0 % (0-2.5); Eosinophils # (Auto) 0.3 Thou/mm3 (0.0-0.5); Eosinophils % (Auto) 4 % (0-10); Hematocrit 37.3 % (36.0-46.0); Hemoglobin 12.1 g/dL (12.0-16.0); Immature Granulocytes Auto 0.01 Thou/mm3 (0.00-0.00); Lymphocytes # (Auto) 2.6 Thou/mm3 (1.0-4.8); Lymphocytes % (Auto) 34 % (10-50); Mean Corpuscular HGB Conc 32.4 g/dl (31.0-37.0); Mean Corpuscular Hemoglobin 26.9 pg (25.0-35.0); Mean Corpuscular Volume 83 fL (80-100); Monocytes # (Auto) 0.6 Thou/mm3 (0.0-0.8); Monocytes % (Auto) 8 % (0-12); Neutrophils # (Auto) 4.1 Thou/mm3 (1.8-7.7); Neutrophils % (Auto) 54 % (37-80); Nucleated Red Blood Cell # 0.00 Thou/mm3 (0.00-0.00); Nucleated Red Blood Cell % 0 /100 WBC (0); Platelet Count 219 Thou/mm3 (140-440); RDW Standard Deviation 40.1 fL (36.4-46.3); Red Blood Count 4.50 Miln/mm3 (4.00-5.20); White Blood Count 7.6 Thou/mm3 (3.6-11.0)
[2025-08-13 13:17] LABS: Anion Gap 10 (7-16); BUN/Creatinine Ratio 20 Ratio (12-20); Blood Urea Nitrogen 16 mg/dL (9-23); Calcium 9.8 mg/dL (8.3-10.6); Carbon Dioxide 29.2 mMol/L (20.0-31.0); Chloride 100 mMol/L (98-107); Creatinine (Component) 0.8 mg/dL (0.6-1.3); Glucose 123 mg/dL (74-106); Osmolality,Calculated 279 (275-295); Potassium 3.6 mMol/L (3.4-5.1); Sodium 139 mMol/L (136-145); eGFR > 60 See Note
== END | disposition home or self-care (01) ==
LOC: COPL 11:57
PROVIDERS: PCP Internal Medicine; Referring Provider Internal Medicine; Visit Provider Internal Medicine
DX: R00.2 Palpitations (principal); F41.9 Anxiety disorder, unspecified; N17.9 Acute kidney failure, unspecified
CPT/HCPCS: 36415; 80048; 85025

== ENCOUNTER → 2025-08-23 | Outpatient (CLI) | payer OTHER, SELFPAY ==
--- NOTE | 2025-08-23 10:30 | XR_ITS ---
Examination: Screening digital mammography, bilateral Computer aided detection 3-D breast Tomosynthesis, bilateral Date and time of exam: August 23, 2025, 10:11 a.m., compared to mammograms dating to December 05, 2016 Indication: Screening Technique: Nonmagnified MLO, CC views of the breasts to been obtained, reconstructed from 3-D Tomosynthesis images. R2 computer aided detection program utilized for evaluation of suspicious masses and/or abnormal calcifications. 3-D Tomosynthesis images obtained. Findings: Scattered areas of fibroglandular density. Skin lesion upper outer right breast Benign calcifications. No interval suspicious masses Impression: BI-RADS category II: Benign Findings. Recommend 1 year follow-up mammogram.
== END | disposition home or self-care (01) ==
LOC: CDIM 10:04
PROVIDERS: Referring Provider Internal Medicine; Visit Provider Internal Medicine
DX: Z12.31 Encounter for screening mammogram for malignant neoplasm of breast (principal); R92.323 Mammographic fibroglandular density, bilateral breasts; R92.1 Mammographic calcification found on diagnostic imaging of breast
CPT/HCPCS: 77063; 77067